=== PATIENT | male | born 1995 | race Caucasian/White ===

== ENCOUNTER 2016-08-07 13:43 | Emergency (ER) | payer OTHER ==
[2016-08-07 13:49] VITALS: RESP 16; TEMP 98.2
[2016-08-07 14:36] LABS: % IMMATURE GRANULYOCYTES 0.4 % (0.0-1.1); ABSOLUTE IMMATURE GRANULOCYTES 0.04 10^3/uL (0.00-0.10); ADD DIFF? NO; ADD MORPH? NO; ADD SCAN? NO; ATYPICAL LYMPHOCYTE FLAG 10 (0-99); FRAGMENT RBC FLAG 0 (0-99); HEMATOCRIT 49.2 % (40.0-51.0); HEMOGLOBIN 17.2 g/dL (13.7-17.5); LEFT SHIFT FLG 0 (0-99); LIPEMIA HEMOLYSIS FLAG 90 (0-99); MEAN CELL HEMOGLOBIN 32.2 pg (27.9-34.1); MEAN CELL VOLUME 92.1 fL (81.5-99.8); PLATELET CLUMPS FLAG 0 (0-99); PLATELET COUNT 246 10^3/uL (150-400); RED BLOOD CELL COUNT 5.34 10^6/uL (4.40-6.38); RED CELL DISTRIBUTION WIDTH 11.5 % (11.5-15.2)
[2016-08-07 15:16] LABS: ANION GAP 12 mEq/L (8-16); CALCIUM 10.3 mg/dL (8.5-10.4); CARBON DIOXIDE 26 mEq/l (22-31); CHLORIDE 104 mEq/L (97-110); CREATININE 1.1 mg/dL (0.7-1.3); GLOMERULAR FILTRATION RATE > 60; GLUCOSE 70 mg/dL (70-100); POTASSIUM 4.3 mEq/L (3.5-5.2); SODIUM 142 mEq/L (134-144)
--- NOTE | 2016-08-07 16:54 | EDPHY ---
H & P Smoking Status: Current some day smoker Time Seen by Provider: 08/07/16 14:05 HPI/ROS: CHIEF COMPLAINT: Seizure HISTORY OF PRESENT ILLNESS: 20-year-old male presents to the emergency department after having a 2nd witnessed seizure yesterday. Patient states 10 days ago he was at home and had a witnessed seizure by his roommate. He states last night he had very similar feeling felt very strange and then had a witnessed tonic-clonic seizure by his roommate. He did not bite his tongue. He was not incontinent of urine. He sustained no trauma. He presents to the emergency department now for evaluation. He states that he feels fine. Patient has a history of bipolar and was on Lamictal 10 mg twice daily up until 1 week ago when he stopped this medication rather abruptly and started new medication, Vraylar, coincidently about a week and half ago at the start of his seizures. The patient denies any other physical complaints currently. Denies chest pain or difficulty breathing. Denies abdominal pain. Denies nausea or vomiting. REVIEW OF SYSTEMS: Constitutional: No fever, no chills. Eyes: No double or blurry vision. ENT: No sore throat. Respiratory: No cough, no shortness of breath. Cardiac: No chest pain. Gastrointestinal: No abdominal pain, vomiting or diarrhea. Genitourinary: No dysuria. Musculoskeletal: No neck or back pain. Skin: No rashes. Neurological: No headache. (Franny Cifuentes) Past Medical/Surgical History: Bipolar (Franny Cifuentes) Social History: Student at [employer] (Franny Cifuentes) Physical Exam: General Appearance: Alert, no distress. Mentating normally and answering questions appropriately. Eyes: Pupils equal and round. Extraocular motions are all intact. ENT: Mouth: Mucous membranes moist. Respiratory: No wheezing, rhonchi, or rales, lungs are clear to auscultation. Cardiovascular: Regular rate and rhythm. Gastrointestinal: Abdomen is soft and nontender, no masses, no rebound or guarding, bowel sounds normal. Neurological: Alert and oriented x 3, cranial nerves II through XII grossly intact Skin: Warm and dry, no rashes. Musculoskeletal: Nontender to palpate along the cervical, thoracic or lumbar spine. Neck is supple. Extremities: Full range of motion and no peripheral edema. Psychiatric: Patient is oriented X 3, there is no agitation. (Franny Cifuentes) Constitutional: Initial Vital Signs Temperature (C) 36.8 C 08/07/16 13:45 Heart Rate 97 08/07/16 13:45 Respiratory Rate 16 08/07/16 13:45 Blood Pressure 172/84 H 08/07/16 13:45 O2 Sat (%) 91 L 08/07/16 13:45 O2 Delivery Mode Room Air Allergies/Adverse Reactions: No Known Allergies Allergy (Unverified 08/07/16 13:49) Home Medications: Medication Instructions Recorded Vraylar 08/07/16 Medical Decision Making - Diagnostics Imaging: CT imaging of the brain was normal. This was reported to me by Dr. Arzola. (Franny Cifuentes) ED Course/Re-evaluation: 20-year-old male presents after having a 2nd witnessed seizure. Coincidentally this patient started a new medication for his bipolar and upon reviewing this medication, seizures is listed as 1 of the serious adverse reactions to this medication. Laboratory studies including CBC and chemistries are normal. CT scan of his head is normal. I discussed the case with Dr. Tyler Franks who is on-call for Neurology who agreed that this is likely from the new medication. He would not put him on antiepileptic medications. He recommended stopping the Vraylar and following up with Neurology. The patient will also follow up with his psychiatrist in [place]. I encouraged him to return to the emergency department if he had recurring seizure. He was warned that he should not drive, swim, climb ladders or do any other dangerous activity until cleared by Neurology. (Franny Cifuentes) Differential Diagnosis: Seizure including but not limited to adverse reaction to medication, electrolyte abnormality, alcohol withdrawal, medication noncompliance, head injury, and breakthrough seizure. (Franny Cifuentes) Other Provider: The patient was evaluated and managed by the Physician Manager Case Management/ Nurse Practitioner. I discussed the patient's presentation and course with the midlevel provider with them and agree with the evaluation. My co-signature indicates that I have reviewed this chart and I agree with the findings and plan of care as documented. I am the secondary supervising physician. (Padmini Han) - Data Points Laboratory Results: Laboratory Results 08/07/16 14:20 08/07/16 14:20 08/07/16 14:20 WBC 9.90 H 10^3/uL (3.80-9.50) RBC 5.34 10^6/uL (4.40-6.38) Hgb 17.2 g/dL (13.7-17.5) Hct 49.2 % (40.0-51.0) MCV 92.1 fL (81.5-99.8) MCH 32.2 pg (27.9-34.1) MCHC 35.0 g/dL (32.4-36.7) RDW 11.5 % (11.5-15.2) Plt Count 246 10^3/uL (150-400) MPV 9.0 fL (8.7-11.7) Neut % (Auto) 65.3 % (39.3-74.2) Lymph % (Auto) 26.2 % (15.0-45.0) [place] % (Auto) 7.0 % (4.5-13.0) Eos % (Auto) 0.8 % (0.6-7.6) Baso % (Auto) 0.3 % (0.3-1.7) Nucleat RBC Rel Count 0.0 % (0.0-0.2) Absolute Neuts (auto) 6.47 10^3/uL (1.70-6.50) Absolute Lymphs (auto) 2.59 10^3/uL (1.00-3.00) Absolute Monos (auto) 0.69 10^3/uL (0.30-0.80) Absolute Eos (auto) 0.08 10^3/uL (0.03-0.40) Absolute Basos (auto) 0.03 10^3/uL (0.02-0.10) Absolute Nucleated RBC 0.00 10^3/uL (0-0.01) Immature Gran % 0.4 % (0.0-1.1) Immature Gran # 0.04 10^3/uL (0.00-0.10) Sodium 142 mEq/L (134-144) Potassium 4.3 mEq/L (3.5-5.2) Chloride 104 mEq/L (97-110) Carbon Dioxide 26 mEq/l (22-31) Anion Gap 12 mEq/L (8-16) BUN 16 mg/dL (7-23) Creatinine 1.1 mg/dL (0.7-1.3) Estimated GFR > 60 Glucose 70 mg/dL (70-100) Calcium 10.3 mg/dL (8.5-10.4) Departure - Departure Disposition: Home, Routine, Self-Care Clinical Impression: Seizure Condition: Good Instructions: Nonepileptic Seizures (ED) Additional Instructions: Talk with your psychiatrist about stopping your medication. This could be what is causing your seizures. Return to the emergency department if you develop recurring seizures, headache, vomiting, altered mental status, or if you feel worse in any way. No driving until cleared by neurologist and the medication is out of your system Referrals: Tyler Franks MD [Medical Doctor] - As per Instructions (Neurologist on-call )
--- NOTE | 2016-08-07 16:57 | CT ---
CT Scan of Head (Without Contrast) Clinical Indications: First time seizure. Technique: Axial CT images were acquired from foramen magnum through vertex, without intravenous con trast. Soft tissue and bone windows were reviewed on the computer workstation. Images were reconstr ucted down to 1.25 mm images. Dose reduction techniques were utilized. Findings: No mass lesions are seen, and there is no evidence of intracranial hemorrhage or acute inf arct. The ventricles and subarachnoid spaces are normal in size for this age group. Bone windows re veal no sign of fracture. The visualized paranasal sinuses and mastoid air cells are free of fluid. Impression: Normal CT of the head. Findings and recommendations discussed with EMMA SAWYER at 1445 hour, 08/07/2016. Final report concurs with initial preliminary interpretation.
[2016-08-07 17:15] VITALS: BP 149/93; PULSE 70; O2SAT 92
== END 2016-08-07 17:15 | disposition home or self-care (01) ==
DX: R56.9 Unspecified convulsions (principal); F17.200 Nicotine dependence, unspecified, uncomplicated